=== PATIENT | male | born 1965 | race Caucasian/White ===

== ENCOUNTER 2019-10-10 10:23 | Outpatient (CLI) | payer SELFPAY | END 2019-10-10 20:00 | disposition home or self-care (01) | LOC: SLB 10:23 | PROVIDERS: ATTEND Orthopaedic Surgery | DX: L08.9 Local infection of the skin and subcutaneous tissue, unspecified (principal) | CPT/HCPCS: 87070-TC ==

== ENCOUNTER 2020-09-07 09:49 | Outpatient (CLI) | payer OTHER | END 2020-09-07 21:06 | disposition home or self-care (01) | LOC: SMI 09:49 | PROVIDERS: ATTEND Orthopaedic Surgery | DX: M25.562 Pain in left knee (principal) | CPT/HCPCS: 73721 ==

== ENCOUNTER 2022-06-03 04:10 | Emergency (ER) | payer OTHER ==
[~2022-06-03] VITALS: Ht 177.8 cm; Wt 78.0 kg
[2022-06-03 04:15] VITALS: BP_SYST 156
--- NOTE | 2022-06-03 04:17 | NUR ---
Patient to ER bed 7 to gown for evaluation. Side rails up. Report given to Courtney davies(traveler).
--- NOTE | 2022-06-03 04:18 | NUR ---
ER at bedside examining patient.
--- NOTE | 2022-06-03 04:25 | NUR ---
Pt taken to CT by option trader at this time.
[2022-06-03] MEDS ORDERED: KETOROLAC TROMETHAMINE 30 MG VIAL IM ONE (04:30)
[2022-06-03] MEDS ORDERED: IBUP-1969 PO (05:11)
[2022-06-03] MEDS ORDERED: SOM350 PO (05:11)
[2022-06-03] MEDS ORDERED: TRAM50TA2 PO (05:11)
--- NOTE | 2022-06-03 05:20 | NUR ---
Patient given written and verbal discharge instructions and verbalizes understanding. ER MD discussed with patient the results and treatment provided. Patient in stable condition. ID arm band removed. Rx of SOMA, IBUPROFEN, TRAMADOL given. Patient educated on pain management and to follow up with PMD. Pain Scale 5/10. Opportunity for questions provided and answered.
== END 2022-06-03 05:20 | disposition home or self-care (01) ==
LOC: SED 04:10
DX: R51.9 Headache, unspecified (principal); F07.81 Postconcussional syndrome; R11.0 Nausea; Z79.899 Other long term (current) drug therapy
CPT/HCPCS: 99285; 70450; 76376; 96372; J1885